=== PATIENT | male | born 1995 | race Two or more races ===

== ENCOUNTER 2020-02-14 20:38 | Inpatient (IN) | payer BC ==
[~2020-02-14] VITALS: Ht 177.8 cm; Wt 79.4 kg
--- NOTE | 2020-02-14 20:50 | NUR ---
Patient ambulated with stable gait. A/Ox4. Speech is clear, speaks in complete sentences. No acute neuro deficits. Patient came for c/o bilateral quadricep pain. Patient reports participating in a stationary biking workout class. No respiratory distress noted, no cough no sob. No cardiovascular distress noted, all pulses palpable, denies any cp, or palpiations. Denies any n/v/d. Patient does report dark, isabel colored urine. Denies any flank pain, or dysuria.
[2020-02-14 21:04] LABS: *BILIRUBIN,URIN NEGATIVE (NEGATIVE); *BLOOD, URINE 3+ (NEGATIVE); *CLARITY,URINE CLEAR (CLEAR); *COLOR,URINE Brown (YELLOW); *KETONES,URINE NEGATIVE (NEGATIVE); *UROBILINOGEN,URINE 0.2 E.U./dl (NORMAL); LEUKOCYTE ESTERASE ,URINE NEGATIVE (NEGATIVE); NITRITE, URINE NEGATIVE (NEGATIVE); UGLUCOSE NEGATIVE (NEGATIVE)
--- NOTE | 2020-02-14 21:15 | NUR ---
lab at bedside drawing patients blood.
[2020-02-14] MEDS ORDERED: IV NS 1000 ML 1,000 ML IV ONE ×2 (21:45→22:30)
[2020-02-14 21:55] LABS: CREATININE 1.5 mg/dL (0.6-1.3); POTASSIUM 4.2 mmol/L (3.5-5.1)
[2020-02-14] MEDS ORDERED: KETOROLAC TROMETHAMINE 30 MG INJ IVP ONE (22:30)
[2020-02-14] MEDS ORDERED: KETOROLAC TROMETHAMINE 30 MG INJ ONE (23:00)
[2020-02-14 23:57] LABS: BACTERIA,URINE NONE SEEN /HPF (NONE SEEN); MUCUS,URINE FEW /LPF (0-FEW); SQUAMOUS EPITHELIAL CELL,UR FEW /HPF (NONE SEEN); WBC,URINE 0-3 /HPF (0-3)
[2020-02-15 00:12] LABS: BILIRUBIN,DIRECT 0.3 mg/dL (0.0-0.2); BILIRUBIN,TOTAL 1.6 mg/dL (0.2-1.0); TOTAL PROTEIN, SERUM 7.6 g/dL (6.4-8.2)
[2020-02-15] MEDS ORDERED: IV NS 1000 ML 1,000 ML IV ONE (00:15)
--- NOTE | 2020-02-15 00:15 | NUR ---
Dr. Arrington states okay to send patient inpatient once COVID swab is collected.
[2020-02-15 00:21] LABS: BASOPHILS % (AUTO) 0.7 % (0.0-2.0); EOSINOPHILS # (AUTO) 0.5 K/uL (0.0-0.7); EOSINOPHILS % (AUTO) 8.9 % (0.0-7.0); HEMATOCRIT 27.2 % (36.7-47.1); HEMOGLOBIN 9.6 g/dL (12.5-16.3); LYMPHOCYTES % (AUTO) 18.6 % (20.5-51.5); MEAN CORPUSCULAR HGB CONC 35 g/dL (32.5-36.3); MEAN CORPUSCULAR VOLUME 93.7 fL (73.0-96.2); MONOCYTES # (AUTO) 0.6 K/uL (2.0-10.0); MONOCYTES % (AUTO) 11.3 % (0.0-11.0); NEUTROPHILS # (AUTO) 3.2 K/uL (1.8-8.9); NEUTROPHILS % (AUTO) 60.5 % (38.5-71.5); PLATELET COUNT (AUTO) 194 K/uL (152-348); RED BLOOD CELL COUNT(AUTO) 2.91 MIL/uL (4.06-5.63); WHITE BLOOD COUNT (AUTO) 5.4 K/uL (3.6-10.2)
--- NOTE | 2020-02-15 00:21 | NUR ---
Report given to SUSY Wilson
[2020-02-15] MEDS ORDERED: Z GUARD REMEDY PASTE 57 GM TUBE TOP PRN (00:30)
[2020-02-15] MEDS ORDERED: ONDANSETRON 4 MG/2 ML VIAL IV PRN (00:30)
[2020-02-15] MEDS ORDERED: ACETAMINOPHEN 325 MG TABLET PO PRN (00:30)
[2020-02-15] MEDS ORDERED: MAGNESIUM HYDROXIDE 30 ML LIQUID UDC PO PRN (00:30)
--- NOTE | 2020-02-15 00:38 | NUR ---
Patient transported to [place] in stable condition.
[2020-02-15] MEDS: HYDROCODONE/APAP 5-325MG TABLET PO PRN ×4 (00:48→21:44)
[2020-02-15] MEDS: IV NS 1000 ML 1,000 ML IV SCH ×4 (00:48→20:47)
[2020-02-15 00:58] VITALS: BP 124/75
--- NOTE | 2020-02-15 05:15 | NUR ---
patient slept intermittently. stable upon arrival from ER at 0040. ID band on. v/s stable. no s/s of acute distress noted. PIV intact and patent. NS running. pain medications administered. tolerated well. will continue to monitor and assess until morning endorsement.
[2020-02-15 05:26] VITALS: BP 117/70
[2020-02-15 07:41] LABS: CREATININE 1.4 mg/dL (0.6-1.3); POTASSIUM 4.3 mmol/L (3.5-5.1)
[2020-02-15 07:43] LABS: BASOPHILS % (AUTO) 0.6 % (0.0-2.0); EOSINOPHILS # (AUTO) 0.6 K/uL (0.0-0.7); EOSINOPHILS % (AUTO) 9.2 % (0.0-7.0); HEMATOCRIT 38.6 % (36.7-47.1); HEMOGLOBIN 13.4 g/dL (12.5-16.3); LYMPHOCYTES # (AUTO) 1.6 K/uL (20.0-40.0); LYMPHOCYTES % (AUTO) 23.6 % (20.5-51.5); MEAN CORPUSCULAR HEMOGLOBIN 32.7 uug (23.8-33.4); MEAN CORPUSCULAR HGB CONC 35 g/dL (32.5-36.3); MEAN CORPUSCULAR VOLUME 94.3 fL (73.0-96.2); MONOCYTES # (AUTO) 0.8 K/uL (2.0-10.0); MONOCYTES % (AUTO) 12.5 % (0.0-11.0); NEUTROPHILS # (AUTO) 3.6 K/uL (1.8-8.9); NEUTROPHILS % (AUTO) 54.1 % (38.5-71.5); PLATELET COUNT (AUTO) 261 K/uL (152-348); WHITE BLOOD COUNT (AUTO) 6.7 K/uL (3.6-10.2)
--- NOTE | 2020-02-15 08:00 | NUR ---
Received pt in bed asleep arousable to name, AOx4, on RA with no SOB or distress at this time. IV on right AC 18g running NS @ 150cc. Complained of bilateral thigh pain, [place] PRN as ordered given. Encouraged to eat breakfast. Bed locked in lowest position with siderails 2x up. Call light and phone within reach
[2020-02-15 11:41] VITALS: BP 129/71
[2020-02-15 13:52] LABS: *BILIRUBIN,URIN NEGATIVE (NEGATIVE); *BLOOD, URINE 3+ (NEGATIVE); *CLARITY,URINE CLEAR (CLEAR); *COLOR,URINE Brown (YELLOW); *KETONES,URINE NEGATIVE (NEGATIVE); *UROBILINOGEN,URINE 0.2 E.U./dl (NORMAL); LEUKOCYTE ESTERASE ,URINE NEGATIVE (NEGATIVE); NITRITE, URINE NEGATIVE (NEGATIVE); PH,URINE 6.5 (5.0-8.0); UGLUCOSE NEGATIVE (NEGATIVE)
[2020-02-15 14:08] LABS: *CREATININE,URINE 26.2 mg/dL (30-125); *URINE TOTAL PROTEIN RANDOM 55.7 mg/dL (<150/24HR)
[2020-02-15 15:26] VITALS: BP 122/79
[2020-02-15 15:43] LABS: BACTERIA,URINE NONE SEEN /HPF (NONE SEEN); SQUAMOUS EPITHELIAL CELL,UR FEW /HPF (NONE SEEN)
--- NOTE | 2020-02-15 20:00 | NUR ---
Pt's temp was 100.2, removed multiple sheets. Pt stated he's feeling fine and refused Tylenol at this time.
[2020-02-15 20:27] VITALS: BP 132/68
--- NOTE | 2020-02-15 20:47 | NUR ---
Rechecked temp, 98.6, no other complaints at this time
[2020-02-16] MEDS: IV NS 1000 ML 1,000 ML IV SCH ×3 (03:08→17:45)
--- NOTE | 2020-02-16 05:00 | NUR ---
Pt stable throughout shift, in bed asleep arousable to name AOx4. Denied SOB or distress at this time. IV on right AC running NS @ 150cc. Pain management provided for bilateral thigh pain, with relief. Bed locked in lowest position with siderails 2x up. Call light and phone within reach
[2020-02-16 06:44] VITALS: BP 141/74
[2020-02-16 07:04] LABS: BASOPHILS % (AUTO) 0.5 % (0.0-2.0); EOSINOPHILS # (AUTO) 0.6 K/uL (0.0-0.7); EOSINOPHILS % (AUTO) 8.4 % (0.0-7.0); HEMATOCRIT 38.6 % (36.7-47.1); HEMOGLOBIN 13.4 g/dL (12.5-16.3); LYMPHOCYTES # (AUTO) 1.3 K/uL (20.0-40.0); LYMPHOCYTES % (AUTO) 19.1 % (20.5-51.5); MEAN CORPUSCULAR HEMOGLOBIN 32.8 uug (23.8-33.4); MEAN CORPUSCULAR HGB CONC 35 g/dL (32.5-36.3); MEAN CORPUSCULAR VOLUME 94.2 fL (73.0-96.2); MONOCYTES # (AUTO) 0.8 K/uL (2.0-10.0); MONOCYTES % (AUTO) 11.5 % (0.0-11.0); NEUTROPHILS # (AUTO) 4.1 K/uL (1.8-8.9); NEUTROPHILS % (AUTO) 60.5 % (38.5-71.5); PLATELET COUNT (AUTO) 250 K/uL (152-348); WHITE BLOOD COUNT (AUTO) 6.7 K/uL (3.6-10.2)
[2020-02-16 07:22] LABS: BILIRUBIN,TOTAL 1.3 mg/dL (0.2-1.0); CREATININE 1.3 mg/dL (0.6-1.3); MAGNESIUM 2.2 mg/dL (1.8-2.4); PHOSPHOROUS 3.4 mg/dL (2.5-4.9); POTASSIUM 4.4 mmol/L (3.5-5.1); TOTAL PROTEIN, SERUM 6.3 g/dL (6.4-8.2)
[2020-02-16] MEDS: HYDROCODONE/APAP 5-325MG TABLET PO PRN ×2 (09:46→20:14)
[2020-02-16 11:44] VITALS: BP 134/75
[2020-02-16 16:00] VITALS: BP 134/80
--- NOTE | 2020-02-16 19:08 | NUR ---
Per patient, no home meds reported.
--- NOTE | 2020-02-16 19:45 | NUR ---
Received patient awake and alert. Patient shows no signs or symptoms of distress at this time. Vital signs stable. Complains of having 6/10 thigh pain at this time. PRN medication to be given. Bed set to lowest position. Call light within reach. Side rails X2 are up. Will continue to monitor patient.
[2020-02-16 20:20] VITALS: BP 130/75
[2020-02-17] MEDS: IV NS 1000 ML 1,000 ML IV SCH ×2 (00:28→06:40)
--- NOTE | 2020-02-17 03:05 | NUR ---
HANDS OFF REPORT RECEIVED. PT IN NO ACUTE DISTRESS. SAFETY AND COMFORT PROVIDED. WILL CONTINUE TO MONITOR.
--- NOTE | 2020-02-17 03:06 | NUR ---
Endorsed patient to SUSY Cano, for continuation of care.
--- NOTE | 2020-02-17 06:15 | NUR ---
PT SLEPT INTERMITTENTLY. SAFETY AND COMFORT PROVIDED. ALL NEEDS ARE MET. WILL ENDORSE TO INCOMING NURSE FOR CONTINUITY OF CARE.
[2020-02-17 06:36] VITALS: BP 126/82
--- NOTE | 2020-02-17 08:00 | NUR ---
Pt is in no acute distress. Swelling on madan quads noted - applied ice on right thigh. IVF infusing as ordered. Pt denies any c/o pain. Call light is within reach.
[2020-02-17 08:15] LABS: CREATININE 1.4 mg/dL (0.6-1.3); MAGNESIUM 1.9 mg/dL (1.8-2.4); PHOSPHOROUS 3.4 mg/dL (2.5-4.9); POTASSIUM 4.4 mmol/L (3.5-5.1)
--- NOTE | 2020-02-17 09:00 | NUR ---
Hospitalist here to see patient. IVF increased as ordered. Instructed pt to use urinal and hat in bathroom for strict Iand O. Pt agreeable with plan.
--- NOTE | 2020-02-17 10:47 | NUR ---
TC done pt tolerated test.
[2020-02-17 11:42] VITALS: BP 132/72
[2020-02-17] MEDS: IV NS 1000 ML 1,000 ML IV PRN ×3 (12:33→21:20)
[2020-02-17 16:00] VITALS: BP 127/84
--- NOTE | 2020-02-17 19:45 | NUR ---
Received patient awake and alert. Patient shows no signs or symptoms of distress at this time. Vital signs stable. Denies having any shortness of breath at this time. Bed set to lowest position. Call light within reach. Side rails X2 are up. Will continue to monitor patient.
[2020-02-17 20:00] VITALS: BP 130/82
[2020-02-17] MEDS: HYDROCODONE/APAP 5-325MG TABLET PO PRN (20:44)
[2020-02-18] MEDS: IV NS 1000 ML 1,000 ML IV PRN ×6 (01:26→23:50)
--- NOTE | 2020-02-18 06:07 | NUR ---
Patient shows no signs or symptoms of distress at this time. Vital signs stable. Patient resting comfortably in bed. Will endorse patient to day shift nurse in stable condition.
[2020-02-18 06:31] VITALS: BP 146/86
[2020-02-18 06:57] LABS: BASOPHILS # (AUTO) 0.1 K/uL (0.0-8.0); BASOPHILS % (AUTO) 0.9 % (0.0-2.0); EOSINOPHILS # (AUTO) 0.5 K/uL (0.0-0.7); EOSINOPHILS % (AUTO) 7.2 % (0.0-7.0); HEMATOCRIT 39.2 % (36.7-47.1); HEMOGLOBIN 13.8 g/dL (12.5-16.3); LYMPHOCYTES # (AUTO) 1.2 K/uL (20.0-40.0); LYMPHOCYTES % (AUTO) 17.7 % (20.5-51.5); MEAN CORPUSCULAR HEMOGLOBIN 32.9 uug (23.8-33.4); MEAN CORPUSCULAR HGB CONC 35 g/dL (32.5-36.3); MEAN CORPUSCULAR VOLUME 93.7 fL (73.0-96.2); MONOCYTES # (AUTO) 0.7 K/uL (2.0-10.0); MONOCYTES % (AUTO) 10.5 % (0.0-11.0); NEUTROPHILS # (AUTO) 4.5 K/uL (1.8-8.9); NEUTROPHILS % (AUTO) 63.7 % (38.5-71.5); PLATELET COUNT (AUTO) 282 K/uL (152-348); RED BLOOD CELL COUNT(AUTO) 4.18 MIL/uL (4.06-5.63)
[2020-02-18 07:28] LABS: BILIRUBIN,DIRECT 0.2 mg/dL (0.0-0.2); BILIRUBIN,TOTAL 0.9 mg/dL (0.2-1.0); CREATININE 1.3 mg/dL (0.6-1.3); MAGNESIUM 1.8 mg/dL (1.8-2.4); PHOSPHOROUS 3.8 mg/dL (2.5-4.9); TOTAL PROTEIN, SERUM 6.4 g/dL (6.4-8.2)
[2020-02-18 10:14] LABS: HEPATITIS A AB, IgM Negative (Negative); HEPATITIS B SURFACE AB Reactive (.)
[2020-02-18 11:19] VITALS: BP 123/76
[2020-02-18] MEDS: HYDROCODONE/APAP 5-325MG TABLET PO PRN ×2 (13:03→22:16)
[2020-02-18 15:14] VITALS: BP 118/66
--- NOTE | 2020-02-18 17:48 | NUR ---
Received Patient awake in stable condition. Patient complaint of leg pain. [place] PRN given with good effect. Patient continue on fluid resuscitation, NACL 250cc/hr as per MD Junior order. no SOB noted. will continue monitor
[2020-02-18 20:00] VITALS: BP 115/73
--- NOTE | 2020-02-18 21:00 | NUR ---
patient request to take shower. provided. bed made and safely back in bed.
[2020-02-19] MEDS: IV NS 1000 ML 1,000 ML IV PRN ×2 (03:38→07:49)
[2020-02-19 04:00] VITALS: BP 113/68
[2020-02-19 06:38] LABS: BASOPHILS # (AUTO) 0.1 K/uL (0.0-8.0); BASOPHILS % (AUTO) 0.8 % (0.0-2.0); EOSINOPHILS # (AUTO) 0.5 K/uL (0.0-0.7); EOSINOPHILS % (AUTO) 7.4 % (0.0-7.0); HEMATOCRIT 37.9 % (36.7-47.1); HEMOGLOBIN 13.2 g/dL (12.5-16.3); LYMPHOCYTES # (AUTO) 1.2 K/uL (20.0-40.0); LYMPHOCYTES % (AUTO) 19.1 % (20.5-51.5); MEAN CORPUSCULAR HEMOGLOBIN 32.8 uug (23.8-33.4); MEAN CORPUSCULAR HGB CONC 35 g/dL (32.5-36.3); MEAN CORPUSCULAR VOLUME 94.2 fL (73.0-96.2); MONOCYTES # (AUTO) 0.7 K/uL (2.0-10.0); MONOCYTES % (AUTO) 10.9 % (0.0-11.0); NEUTROPHILS # (AUTO) 3.9 K/uL (1.8-8.9); NEUTROPHILS % (AUTO) 61.8 % (38.5-71.5); PLATELET COUNT (AUTO) 275 K/uL (152-348); RED BLOOD CELL COUNT(AUTO) 4.03 MIL/uL (4.06-5.63); WHITE BLOOD COUNT (AUTO) 6.3 K/uL (3.6-10.2)
[2020-02-19 06:50] LABS: CREATININE 1.4 mg/dL (0.6-1.3); PHOSPHOROUS 3.9 mg/dL (2.5-4.9); POTASSIUM 4.2 mmol/L (3.5-5.1)
[2020-02-19 07:05] LABS: MAGNESIUM 1.7 mg/dL (1.8-2.4)
--- NOTE | 2020-02-19 08:00 | NUR ---
received pt. resting in bed alert oriented x4. pt. denies pain/ discomfort. pt. denies sob/ difficulty breathing. IV in R UA 20 gauge intact patent running prescribed fluid at 250 CC/ hr. safety measures in place. call light within reach. will continue to monitor pt.
[2020-02-19 10:22] LABS: BILIRUBIN,DIRECT 0.2 mg/dL (0.0-0.2); BILIRUBIN,TOTAL 0.8 mg/dL (0.2-1.0); TOTAL PROTEIN, SERUM 5.9 g/dL (6.4-8.2)
[2020-02-19] MEDS: MAGNESIUM SULFATE/D5W 100 ML IV SCH ×2 (10:38→11:41)
[2020-02-19 11:48] VITALS: BP 120/75
--- NOTE | 2020-02-19 12:51 | NUR ---
pt. discharged home. IV removed. ID band removed. all belongings with pt. discharge education compete. pt. understands to get blood drawn and interpreted by pcp. pt. picked up by roommate. pt. in stable condition
== END 2020-02-19 12:45 | disposition home or self-care (01) | DRG 557 ==
LOC: ER 20:43 → MEDSURG3 02-15 00:17
PROVIDERS: ADMIT Nurse Practitioner Acute Care; ATTEND Nurse Practitioner Acute Care
DX: M62.82 Rhabdomyolysis (principal); N17.0 Acute kidney failure with tubular necrosis; R74.0 Nonspecific elevation of levels of transaminase and lactic acid dehydrogenase [LDH]
CPT/HCPCS: 36415; 76700; 83735; 84100; 84156; 84300; 85025; 86706; 86709; 86803; A4663; G0378; J1885; J3475; J7030

== ENCOUNTER 2021-07-25 18:40 | Emergency (ER) | payer SELFPAY ==
[~2021-07-25] VITALS: Ht 177.8 cm; Wt 81.6 kg
--- NOTE | 2021-07-25 18:57 | NUR ---
Dr Miramontes at the bedside for MSE.
--- NOTE | 2021-07-25 19:10 | NUR ---
Received thorough report from BRIAN using SBAR method at pt bedside. I introduced myself and began my assessment. Pt is here for bc he ingested half of a 30mg pill of atterall to help him cut through he Addendum: 07/25/21 at 2012 by [facility]IS cut through his hang over and help him feel better. He states that he has done atterall before, however, this time he felt CP and became scared that his heart had sustained some damage due to poss taking too much. So he decided to come to the ED to get checked out and make sure nothing was wrong. VSS, PE WNL, pt has good color and appearance. Otherwise healthy individual with no medical issues. Pt appears to be very fit and healthy, and states that he does work out. 138/92, 85bpm, 98%RA, 18rpm, 0/10 pain. Pt denies any pain, sob, dizziness, n/v or discomfort. No s/sx of distress present.
--- NOTE | 2021-07-25 19:19 | NUR ---
Shift report given to Salvador Martinez RN.
[2021-07-25 19:25] LABS: POTASSIUM 3.7 mmol/L (3.5-5.1)
[2021-07-25 19:37] LABS: MEAN CORPUSCULAR HEMOGLOBIN 33.6 uug (23.8-33.4); MEAN CORPUSCULAR VOLUME 95.9 fL (73.0-96.2); PLATELET COUNT (AUTO) 356 K/uL (152-348)
[2021-07-25] MEDS ORDERED: LORAZEPAM 1 MG TABLET ONE (20:00)
[2021-07-25] MEDS ORDERED: LORAZEPAM 0.5 MG TABLET PO ONE (20:00)
--- NOTE | 2021-07-25 20:03 | NUR ---
ED at the bedside to discuss the dispo with pt. EDMD asked if pt would like to stay longer or if pt feels up to going home, this was after the EDMD informed pt that all the lab work came back normal, and that most likely what pt felt was all in his head as part of an anxiety attack or poss paranoia brought on by the atterall. Pt stated that he feels much better and that he feels good enough to go home now that he knows nothing is abnormal with his hear. EDMD told pt to hang tight while he printed out his DC paperwork.
[2021-07-25] MEDS ORDERED: ONDANSETRON ODT 4 MG TAB.RAPDIS SL ONE (20:15)
--- NOTE | 2021-07-25 20:20 | NUR ---
Pt given DC instuctions and pt confirmed understanding of aftercare. Pt given some info regarding how to manage anxiety and paranoia and advised the pt maybe considering leaving certain drugs alone and to always err on the side of caution and consider the prodence of his decisions. Pt completely agreed and said that he has no desire to every try atterall again and feels foolish for doing this to himself and will definitily never do a drug that was not specificallyu prescribed to him. VSS, pe wnl, aaox4, lungs clear, RRR, normal s1s2 without m/g/s. Signing Teacher strength strong and equal bilat. strong and reg distal pulses x4ext. Pt denies any anxiety, pain, sob, dizziness, n/v or discomfort. No s/sx of distress present.
[2021-07-25 20:35] VITALS: BP 138/85
== END 2021-07-25 20:20 | disposition home or self-care (01) ==
LOC: ER 18:41
DX: R07.89 Other chest pain (principal); R00.2 Palpitations; F15.90 Other stimulant use, unspecified, uncomplicated
CPT/HCPCS: 36415; 70030-TC; 71045; 85025; 93005; A4663